=== PATIENT | male | born 1990 | race Caucasian/White ===

== ENCOUNTER 2021-05-01 15:07 | Emergency (ER) | payer OTHER ==
[~2021-05-01] VITALS: Ht 180.3 cm; Wt 149.7 kg
[2021-05-01 19:21] LABS: HEMATOCRIT 45.9 % (42.0-52.0); HEMOGLOBIN 15.5 gm/dL (14.0-18.0); MCH 28.1 pg (26.0-34.0); MCHC 33.7 g/dL (28.0-37.0); MCV 83.4 fL (80.0-100.0); MPV 8.1 fl. (7.2-11.1); RBC 5.5 mil/uL (4.50-6.00); RDW-CV 13.2 % (10.5-14.5); WBC 7.3 thou/uL (4.0-11.0)
[2021-05-01 19:28] LABS: CALCIUM 8.5 mg/dL (8.5-10.1); CREATININE 1.1 mg/dL (0.6-1.3); POTASSIUM 3.9 mmol/L (3.5-5.1)
[2021-05-01] MEDS ORDERED: BUTALB-APAP-CA1 EACH PO (20:09)
[2021-05-01] MEDS ORDERED: MEDROLDOSEPACK PO (20:09)
[2021-05-01] MEDS ORDERED: PROAIR HFA8.5 GM INH (20:09)
[2021-05-01 20:27] VITALS: BP 134/85
== END 2021-05-01 20:28 | disposition home or self-care (01) ==
LOC: M.ERS 15:07
PROVIDERS: Physician Assistant
DX: J06.9 Acute upper respiratory infection, unspecified (principal); Z90.89 Acquired absence of other organs